=== PATIENT | female | born 1980 | race Caucasian/White ===

== ENCOUNTER 2024-08-11 23:58 | Emergency (ER) | payer OTHER ==
[2024-08-12] MEDS: Ketorolac 30 MG/ML SDV IM ONE (00:19)
[2024-08-12] MEDS: Ondansetron 4 MG/2 ML SDV IM ONE (00:22)
[2024-08-12] MEDS: diphenhydrAMINE 50 MG/ML SDV IM ONE (00:22)
== END 2024-08-12 00:50 | disposition home or self-care (01) ==
LOC: FB.ED 23:58
DX: G43.509 Persistent migraine aura without cerebral infarction, not intractable, without status migrainosus (principal)
CPT/HCPCS: 96372; 99283; J1200; J1885; J2405